=== PATIENT | female | born 1995 | race Caucasian/White ===

== ENCOUNTER 2019-07-21 02:44 | Emergency (ER) | payer OTHER ==
[~2019-07-21] VITALS: Ht 170.2 cm; Wt 81.6 kg
[2019-07-21 02:46] VITALS: BP 126/69
--- NOTE | 2019-07-21 02:50 | NUR ---
PT TAKEN TO BED 9
--- NOTE | 2019-07-21 03:01 | NUR ---
Dr. Mariano examining patient.
--- NOTE | 2019-07-21 03:04 | NUR ---
24 Y/O FEMALE PRESENTS TO ED, C/O LEFT FOREARM LACERATION APPROXIMATELY 2.5 CM WIDE. MILD BLEEDING ON LACERATION. PT C/O OF STINGING PAIN 12/12. DENIES TAKING ANY MEDICATIONS FOR PAIN. PT STATES CLIMBING A FENCE WHEN HER ARM GOT CAUGHT AND CAUSED LACERATION. PT VSS. ERMD AWARE. WILL CONTINUE TO MONITOR.
[2019-07-21] MEDS ORDERED: LIDOCAINE MPF 1% 10 MG/ML VIAL INJ ONE (03:10)
[2019-07-21] MEDS ORDERED: BACITRACIN OINT 500 UNITS/GM PKT TP ONE (03:40)
--- NOTE | 2019-07-21 03:45 | NUR ---
PT WOUND COVERED WITH NON ADHERENT DRESSING AND WRAPPED WITH COFLEX AFTER BACITRACIN APPLIED +CSM
[2019-07-21 03:52] VITALS: BP 122/63
--- NOTE | 2019-07-21 03:52 | NUR ---
Patient discharged with v/s stable. Written and verbal after care instructions given and explained. Patient verbalized understanding. Ambulatory with steady gait. All questions addressed prior to discharge. Advised to follow up with PMD.
== END 2019-07-21 03:52 | disposition home or self-care (01) ==
LOC: MED 02:44
DX: S51.812A Laceration without foreign body of left forearm, initial encounter (principal); W26.8XXA Contact with other sharp object(s), not elsewhere classified, initial encounter; Y93.39 Activity, other involving climbing, rappelling and jumping off; Y92.89 Other specified places as the place of occurrence of the external cause; Y99.8 Other external cause status
CPT/HCPCS: 12001; 99283; J2001

== ENCOUNTER 2019-08-03 11:46 | Emergency (ER) | payer OTHER ==
[~2019-08-03] VITALS: Ht 162.6 cm; Wt 83.5 kg
[2019-08-03 11:56] VITALS: BP 114/75
--- NOTE | 2019-08-03 11:58 | NUR ---
PT ARRIVED TO ED FOR SUTURE REMOVAL ON RIGHT ARM. SUTURE INCISION IS CLEAN, DRY AND INTACT. NO DRIANAGE NOTED. NO BLOOD NOTED. VSS. NKA.
[2019-08-03 12:44] VITALS: BP 114/75
== END 2019-08-03 12:45 | disposition home or self-care (01) ==
LOC: MED 11:46
DX: S51.812D Laceration without foreign body of left forearm, subsequent encounter (principal); Z48.02 Encounter for removal of sutures; X58.XXXD Exposure to other specified factors, subsequent encounter
CPT/HCPCS: 99281